=== PATIENT | male | born 2005 ===

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

== ENCOUNTER 2025-02-10 10:30 | Outpatient (RCR) | payer OTHER, SELFPAY ==
[2025-01-29 09:56] VITALS: BMI 30.1
[2025-01-29 09:58] VITALS: BP 108/58; PULSE 76; TEMP 36.8
--- NOTE | 2025-01-29 14:19 | P.HPPSP_ITS ---
HPI Date of Service: 01/29/25 Chief Complaint: bipolar,schizoaffective d/o,MAYITO Sources of Information: patient interviewed, chart reviewed and crisis/core team assessment reviewed HPI Narrative: Patient is a 19 yo male with history of Schizoaffective Disorder, previous section.12 admissions, as well as s.35 admission to [facility], who was referred by his father following being section 12 to [facility] at [place] due to decompensating secondary to non-compliance to medications, after presenting with helen and psychosis. They think I needed some time for some spiritual healing saying that his parents sent him to go to the hospital. He says that h e was not against going however he did not feel he needed to go. Reports mood is good , denies any psychiatric concerns at this time. 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 Mentions noting some impulsivity and feeling hyperactive, but feeling this is his natural state . He is taking olanzapine 20 mg consistently, his parents are making sure he is taking his medications, but says he feels it is too sedating and would like to stop taking the medication. Denies any current alcohol or substance use. Denies AH, VH or paranoia. He maintains some insight into illness. Patient is known to [facility] [place] inpatient stay in 01/2024 for decompensation in context of substance use, reportedly at the time patient was admitted due to reports of hearing and seeing angels and talking with God, sabianism and grandiose delusions. Pt was on his way home from [place] during college break. He apparently had been using mushrooms (psychodelic substances including psilocybin and DMT) and cannabis. Utox is positive for cannabinoids. Initial Assessment reviewed with patient, including HPI, PPH, SH, Substance use hx,Trauma hx,? please refer to note for full details. Past Psychiatric History: Hx of [facility] x3 or more [place] in 11/2024, admission to [facility] on 02/18/24 for 9 days for new onset psychosis. Sect 35 to [facility] Apparently dx with autism at age 4. OP: none at this time. He was in therapy for depression. Past medication trials: lamictal, concerta, sertraline (nausea), Hx of suicide attempt: long time ago reports bottle cap. [facility] Medical History (Updated 01/31/25 @ 21:28 by Jenny Ellis MD) History of hand fracture No known health problems ADHD Surgical History (Updated 01/29/25 @ 09:55 by Maria Anne RN) Hx of appendectomy Family History: per pt, mother has bipolar Disorder Social History: Pt currently lives with grandparents. 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 He has an older sister with whom he does not have much contact. Not working. Trauma History: childhood- emotional/verbal by both parents while they were going through divorce Diagnostics Vital Signs (24Hr): Vital Signs - 24 hr 01/29/25 09:58 Temperature 98.2 F Pulse Rate 76 Blood Pressure 108/58 L BMI result Body Mass Index 30.1 Meds/Allergies Allergies Allergies Allergy/AdvReac Type Severity Reaction Status Date / Time No Known Allergies Allergy Verified 11/05/24 08:36 Mental Status Exam Mental Status Exam Patient Appearance: Well Grooomed Patient Orientation: Person, Place, Time and Situation Level of Consciousness: Awake and Alert Patient Behavior: Talkative, Cooperative and Restless Mood Description: Happy Affect Description: Expansive Patient Cognition Impaired: No Ability to Follow Directions: Good Speech Pattern: Clear, Spontaneous Speech and Rambling Hallucinations: None Delusions: Grandiose Thought Process: Racing Thought Content: positive for Obsessional Thoughts and positive for Tangential Abnormal Motor Activity Signs and Symptoms: Restlessness Judgement: Fair Assessment & Plan Assessment & Plan (1) Schizoaffective disorder, bipolar type: Status: Acute Code(s): F25.0 - Schizoaffective disorder, bipolar type Plan Admit to [facility] VS reviewed: afebrile, BP 108/58;?76 bpm continue regular medications: olanzapine 20 mg qhs Routine lab work as indicated EKG, routine for baseline QTc for medication considerations as indicated UDS as indicated MassPat reviewed Continue to monitor as per protocol Patient educated on: diagnosis, medication risk/benefits and substance abuse Informed Consent: understands Reason for continued partial hosp. stay Substantial Risk for: inability to function, rapid decompensation and med/psych decompensation Certification I certify that partial hospital treatment is medically necessary due to the symptoms and problems resulting from the patient's mental illness and the failure to treat the patient at the partial hospital level of care would likely result in the patient requiring inpatient psychiatric care which could not be prevented at a less intensive level of care. Time Spent With Patient Time: Total time managing care of this patient today __90__ minutes.
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
--- NOTE | 2025-02-02 21:31 | HO.PHPPROGNO ---
Subjective Subjective Date of Service: 02/02/25 Reason For Visit: bipolar,schizoaffective d/o,MAYITO Interim History: Patient seen for follow-up. Was his usual bright self, perhaps a bit less expansive. Complains of feeling tired and difficulty waking in the AM. He is sleeping over 10 hours and would sleep more if he didnt have to get to program. He expresses desire to lower his medication. Mood is good, no complaints...I feel stabilized . 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 Denies any AH, VH, no delusional content exprssed. He is noted to have a history of med non-compliance and I figure may be work working with him to lower dose just by 2.5 mg so that he feels empowered and invested in treatment and hopefully he will perceive an improvement by mitigating reported side effects, (which may also encourage better complaince). I was also able to discuss this briefly with Stephan's father, in the presence of patient, who came to pick him up. Medication Compliance: Yes Side effects from medications: Yes (as noted - sedation) Attending Groups: Yes Review of Systems Acute medical concerns: No Mental Status Exam Mental Status Exam Narrative: Alert, oriented, in no acute distress. Calm, cooperative, engaged. No psychomotor agitation or neurovegetative retardation. Eye contact maintained. Mood good , affect expansive, mood congruent. Speech normal. Thought process linear, coherent. Thought content related to stressors, no paranoia or delusional content elicited. denies any hopelessness or SI. Denies any aggressive ideation or HI. No evidence of psychosis. Insight and judgment - fair but adequate. Diagnostics Vital Signs (24Hr): BMI result Body Mass Index 30.1 Assessment & Plan Assessment & Plan (1) Schizoaffective disorder, bipolar type: Status: Acute Code(s): F25.0 - Schizoaffective disorder, bipolar type Plan Continue PHP decrease olanzapine to 17.5 mg qhs continue olanzapine 2.5 mg qd PRN agitation, sleep (so he still has access to take the whole 20 mg dose if needed) Routine lab work as indicated EKG, routine for baseline QTc for medication considerations as indicated UDS as indicated VS reviewed: afebrile, BP 108/58;?76 bpm Continue to monitor Patient educated on: diagnosis and medication risk/benefits Informed Consent: understands Reason for contiued partial hosp. stay Substantial Risk for: rapid decompensation and med/psych decompensation Certification I certify that partial hospital treatment is medically necessary due to the symptoms and problems resulting from the patient's mental illness and the failure to treat the patient at the partial hospital level of care would likely result in the patient requiring inpatient psychiatric care which could not be prevented at a less intensive level of care. Total time managing care of this patient today __30__ minutes. Discharge Plan Discharge Attending provider: Jenny Ellis Additional Instructions: New PCP appointment with Kellee Ko on Sunday, March 16, 2025 at 3:45. Office # [phone]. [address], [place]. Medications: New olanzapine 15 mg tablet 15 mg PO BEDTIME Qty: 14 0RF olanzapine 2.5 mg tablet 2.5 mg PO BID Qty: 30 0RF Rx Instructions: take one tablet po daily at bedtime; take one tablet po qd PRN agitation/ anxiety/insomnia Continued olanzapine 20 mg tablet 20 mg PO BEDTIME Qty: 30 0RF Stand Alone Forms: Patient Portal Discharge page Print Language: Kazakh
--- NOTE | 2025-02-03 13:54 | PC.NURSE ---
Patient has a new PCP appointment with Kellee Ko on Sunday, March 16, 2025 at 3:45. Office # [phone]. [address] [place], [place].
--- NOTE | 2025-02-04 14:25 | HO.PHP ---
Clients case was opened and reviewed in teams today.
--- NOTE | 2025-02-08 22:40 | HO.PHPPROGNO ---
Subjective Subjective Date of Service: 02/08/25 Reason For Visit: bipolar,schizoaffective d/o,MAYITO Interim History: Patient seen for follow-up, anticipating discharge at the end of program today.? Continues to present as expansive, less talkative, not pressured, without FOI/JOSE. 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 He is tolerating olanzapine 17.5 mg qd, he has not been needing the 2.5 mg PRN dose and relays being even a little irritable about not getting to decrease the dose more. He denies any worsening of mood or anxiety, does not endorse or share any delusional content. Reports no acute issues or concerns. Medication compliant, medications well-tolerated. Denies any adverse effects.? Mood is stable.? Denies any hopelessness or SI. Denies thoughts of harming self or others at this time. Denies any aggressive ideation or HI. Denies any paranoia or AH or VH. Sleep, appetite, energy stable. Mental Status Exam Mental Status Exam Narrative: Alert, oriented, in no acute distress. Calm, cooperative, engaged. No psychomotor agitation or neurovegetative retardation. Eye contact maintained. Mood good , affect expansive, mood congruent. Speech normal. Thought process linear, coherent. Thought content related to stressors, no paranoia or delusional content elicited. denies any hopelessness or SI. Denies any aggressive ideation or HI. No evidence of psychosis. Insight and judgment - fair but adequate. Patient Appearance: Well Grooomed Patient Orientation: Person, Place, Time and Situation Level of Consciousness: Awake and Alert Patient Behavior: Talkative, Cooperative and Restless Mood Description: Happy Affect Description: Expansive Patient Cognition Impaired: No Ability to Follow Directions: Good Speech Pattern: Clear, Spontaneous Speech and Rambling Diagnostics Vital Signs (24Hr): BMI result Body Mass Index 30.1 Assessment & Plan Assessment & Plan (1) Schizoaffective disorder, bipolar type: Status: Acute Code(s): F25.0 - Schizoaffective disorder, bipolar type Plan [facility]charge from [facility] continue olanzapine 17.5 mg qhs PRN smalee continue olanzapine 2.5 mg qd PRN agitation, sleep (so he still has access to take the whole 20 mg dose if needed) Will defer further medication management to outpatient provider *Safety plan reviewed *Discharge diagnoses, treatment course, discharge plan have been reviewed with patient (including medication regime, medication management, potential side effects) as well as treatment rationale were also revisited *Discharge paperwork signed and given to patient, copy sent for scanning to chart Patient educated on: diagnosis and medication risk/benefits Informed Consent: understands Reason for contiued partial hosp. stay Substantial Risk for: med/psych decompensation Certification I certify that partial hospital treatment is medically necessary due to the symptoms and problems resulting from the patient's mental illness and the failure to treat the patient at the partial hospital level of care would likely result in the patient requiring inpatient psychiatric care which could not be prevented at a less intensive level of care. Total time managing care of this patient today __30__ minutes. Discharge Plan Discharge Attending provider: Jenny Ellis Additional Instructions: New PCP appointment with Kellee Ko on Sunday, March 16, 2025 at 3:45. Office # [phone]. [address] [place], [place]. Medications: New olanzapine 2.5 mg tablet 2.5 mg PO BID Qty: 30 0RF Rx Instructions: take one tablet po daily at bedtime; take one tablet po qd PRN agitation/ anxiety/insomnia Continued olanzapine 15 mg tablet 15 mg PO BEDTIME Qty: 30 0RF Discontinued olanzapine 20 mg tablet 20 mg PO BEDTIME Stand Alone Forms: Patient Portal Discharge page Print Language: Prydeinig
== END 2025-02-10 23:59 | disposition home or self-care (01) ==
LOC: HO.PHPA 10:30
PROVIDERS: Visit Provider Psychiatry & Neurology Psychiatry
DX: F25.0 Schizoaffective disorder, bipolar type (principal); Z79.899 Other long term (current) drug therapy
CPT/HCPCS: 90791; 90853